=== PATIENT | male | born 1950 | race Caucasian/White ===

== ENCOUNTER 2024-05-02 10:38 | Inpatient (IN) | payer MEDICARE ==
[2024-05-02] MEDS: Albuterol/Ipratropium 3.0-0.5 MG/3 ML Neb Soln NEB ONE (11:18)
[2024-05-02 11:34] LABS: BASOPHILS ABSOLUTE AUTO 0.02 K/uL (0.02-0.10); BASOPHILS PERCENT AUTO 0.2 % (0.0-0.5); EOSINOPHILS ABSOLUTE AUTO 0.19 K/uL (0.04-0.40); EOSINOPHILS PERCENT AUTO 1.9 % (1.0-5.0); HEMATOCRIT 43.8 % (40.0-54.0); HEMOGLOBIN 14.4 g/dL (13.0-18.0); LYMPHOCYTES ABSOLUTE AUTO 0.69 K/uL (1.50-4.00); LYMPHOCYTES PERCENT AUTO 6.9 % (20.0-40.0); MEAN CORPUSCULAR HEMOGLOBIN 28.4 pg (27.0-32.0); MEAN CORPUSCULAR HGB CONC 32.9 g/dL (31.0-35.0); MEAN CORPUSCULAR VOLUME 86 fL (76-96); MEAN PLATELET VOLUME 10.7 fL (6.0-10.0); MONOCYTES ABSOLUTE AUTO 1.51 K/uL (0.20-0.80); NEUTROPHILS ABSOLUTE AUTO 7.63 K/uL (2.00-7.50); RED BLOOD CELL COUNT 5.07 M/uL (4.50-6.50); RED CELL DISTRIBUTION WIDTH 14.8 % (11.0-16.0)
[2024-05-02 11:39] LABS: PLATELET COUNT,PLT 126 K/uL (150-400)
[2024-05-02 11:45] LABS: INR 1.1 (1.0-3.5); PTT,PARTIAL THROMBOPLSTIN TIME 32.5 SECONDS (24.4-33.2)
[2024-05-02 11:47] LABS: INFLUENZA A NAA NEGATIVE (NEGATIVE); INFLUENZA B NAA NEGATIVE (NEGATIVE); RESPIRATORY SYNCYTIAL VIR NAA NEGATIVE (NEGATIVE)
[2024-05-02 11:47] LABS: A/G RATIO 0.9 (0.8-2.0); ALBUMIN 4.1 g/dL (3.4-5.0); ANION GAP 9.9 mmol/L (5.0-15.0); BILIRUBIN TOTAL 0.9 mg/dL (0.0-1.0); BUN/CREATININE RATIO 14.3 (6-25); CARBON DIOXIDE,CO2 33.4 mmol/L (21.0-32.0); CREATININE 1.54 mg/dL (0.70-1.30); EST CRCL DRUG DOSING (CG) 46.84 mL/min; POTASSIUM,K 4.3 mmol/L (3.5-5.1); PROTEIN TOTAL,TP 8.5 g/dL (6.4-8.2)
[2024-05-02 11:50] LABS: CORONAVIRUS COVID-19 NAA NEGATIVE (NEGATIVE)
[2024-05-02 11:50] LABS: PROTHROMBIN TIME 11.6 sec (9.0-11.5)
[2024-05-02 11:55] LABS: MAGNESIUM 2.1 mg/dL (1.8-2.4); TROPONIN I HIGH SENSITIVITY 30.9 pg/ml (<=60.4)
[2024-05-02] MEDS: Sodium Chloride 0.9% 50 ML SDV FLUSH ONE (12:23)
[2024-05-02] MEDS: Iodixanol 652 MG/ML 100 ML Bottle IV SCH (12:23)
[2024-05-02] MEDS: Furosemide 40 MG/4 ML VIAL IVPUSH ONE ×2 (12:33→19:33)
[2024-05-02] MEDS: Furosemide 40 MG/4 ML VIAL ONE (12:36)
[2024-05-02] MEDS: Enalaprilat 1.25 MG/ML SDV IVPUSH ONE (12:43)
[2024-05-02] MEDS ORDERED: Acetaminophen 325 MG Tab PO PRN (15:03)
[2024-05-02] MEDS: Ascorbic Acid 500 MG Tab PO SCH (19:35)
[2024-05-02] MEDS: Apixaban 5 MG Tab PO SCH (19:36)
[2024-05-02] MEDS: traZODone 50 MG Tab PO SCH (19:36)
[2024-05-02] MEDS: Carvedilol 25 MG Tab PO SCH (19:36)
[2024-05-02] MEDS: Magnesium Oxide 400 MG Tab PO SCH (19:36)
[2024-05-02] MEDS ORDERED: Non-Formulary Medication 1 Each (Ascorbic Acid [Vitamin C] 1,000 MG Tablet) PO SCH (20:00)
[2024-05-02] MEDS ORDERED: Non-Formulary Medication 1 Each (Magnesium [Magnesium] 200 MG Tablet) PO SCH (20:00)
[2024-05-02] MEDS: Doxycycline 100 MG Cap PO SCH (20:12)
[2024-05-03] MEDS: Albuterol/Ipratropium 3.0-0.5 MG/3 ML Neb Soln NEB PRN (04:55)
[2024-05-03] MEDS ORDERED: Non-Formulary Medication 1 Each (Levothyroxine [Levothyroxine] 125 MCG Tablet) PO SCH (07:00)
[2024-05-03 07:40] LABS: BASOPHILS ABSOLUTE AUTO 0.02 K/uL (0.02-0.10); BASOPHILS PERCENT AUTO 0.2 % (0.0-0.5); EOSINOPHILS ABSOLUTE AUTO 0.03 K/uL (0.04-0.40); EOSINOPHILS PERCENT AUTO 0.3 % (1.0-5.0); HEMATOCRIT 43.8 % (40.0-54.0); HEMOGLOBIN 14.2 g/dL (13.0-18.0); LYMPHOCYTES ABSOLUTE AUTO 1.14 K/uL (1.50-4.00); LYMPHOCYTES PERCENT AUTO 12.4 % (20.0-40.0); MEAN CORPUSCULAR HEMOGLOBIN 27.9 pg (27.0-32.0); MEAN CORPUSCULAR HGB CONC 32.4 g/dL (31.0-35.0); MEAN CORPUSCULAR VOLUME 86 fL (76-96); MEAN PLATELET VOLUME 10.8 fL (6.0-10.0); MONOCYTES ABSOLUTE AUTO 1.68 K/uL (0.20-0.80); MONOCYTES PERCENT AUTO 18.3 % (3.0-10.0); NEUTROPHILS ABSOLUTE AUTO 6.33 K/uL (2.00-7.50); NEUTROPHILS PERCENT AUTO 68.8 % (45.0-70.0); PLATELET COUNT,PLT 126 K/uL (150-400); RED BLOOD CELL COUNT 5.09 M/uL (4.50-6.50); RED CELL DISTRIBUTION WIDTH 14.8 % (11.0-16.0); WHITE BLOOD CELL COUNT,WBC 9.2 K/uL (4.0-11.0)
[2024-05-03] MEDS ORDERED: Carvedilol 25 MG Tab PO SCH (08:00)
[2024-05-03] MEDS ORDERED: Potassium Chloride 20 MEQ Tab.ER PO SCH (08:00)
[2024-05-03] MEDS ORDERED: Non-Formulary Medication 1 Each (Potassium Chloride [Potassium Chloride] 10 MEQ Cap.Er) PO SCH (08:00)
[2024-05-03] MEDS ORDERED: Losartan 25 MG Tab PO SCH (08:00)
[2024-05-03] MEDS ORDERED: Furosemide 20 MG Tab PO SCH (08:00)
[2024-05-03 08:06] LABS: A/G RATIO 0.9 (0.8-2.0); ALBUMIN 3.9 g/dL (3.4-5.0); ANION GAP 12.1 mmol/L (5.0-15.0); BILIRUBIN TOTAL 0.8 mg/dL (0.0-1.0); BUN/CREATININE RATIO 17.5 (6-25); CALCIUM 9.8 mg/dL (8.5-10.1); CARBON DIOXIDE,CO2 32.2 mmol/L (21.0-32.0); CREATININE 1.71 mg/dL (0.70-1.30); EST CRCL DRUG DOSING (CG) 42.18 mL/min; POTASSIUM,K 4.3 mmol/L (3.5-5.1); PROTEIN TOTAL,TP 8.2 g/dL (6.4-8.2)
[2024-05-03] MEDS: Levothyroxine 25 MCG Tab PO SCH (08:28)
[2024-05-03] MEDS: Levothyroxine 100 MCG Tab PO SCH (08:28)
[2024-05-03] MEDS: Omeprazole 20 MG Cap.CR PO SCH (08:28)
[2024-05-03] MEDS: Furosemide 40 MG/4 ML VIAL IVPUSH SCH (08:29)
[2024-05-03] MEDS: Zinc (Zinc Gluconate) 50 MG Tab PO SCH (08:31)
[2024-05-03] MEDS: Aspirin 81 MG Tab.EC PO SCH (08:32)
[2024-05-03] MEDS: Losartan 50 MG Tab PO SCH (08:32)
[2024-05-03] MEDS: Fish Oil/Omega-3 Fatty Acids 1 Gm Cap PO SCH (08:33)
[2024-05-03] MEDS: Calcium Carbonate 600 MG Tab PO SCH (08:33)
[2024-05-03] MEDS: Docusate Sodium 100 MG Cap PO SCH (08:33)
[2024-05-03] MEDS: Potassium Chloride 20 MEQ Tab.ER PO SCH (08:34)
[2024-05-03] MEDS: methylPREDNISolone Sodium Succinate 40 MG/1 ML SDV IVPUSH SCH (10:09)
[2024-05-03 15:58] LABS: APPEARANCE,URINE CLOUDY (CLEAR); BILIRUBIN,URINE NEGATIVE (NEGATIVE); COLOR,URINE YELLOW; GLUCOSE,URINE NEGATIVE (NEGATIVE); KETONES,URINE NEGATIVE (NEGATIVE); LEUKOCYTE ESTERASE,URINE NEGATIVE (NEGATIVE); NITRITE,URINE NEGATIVE (NEGATIVE); OCCULT BLOOD,URINE NEGATIVE (NEGATIVE); PROTEIN,URINE NEGATIVE (NEGATIVE); UROBILINOGEN,URINE 0.2 E.U./dL (0.2-1.0)
[2024-05-03] MEDS: Tamsulosin 0.4 MG Cap.ER PO SCH (18:19)
[2024-05-03] MEDS: Albuterol/Ipratropium 3.0-0.5 MG/3 ML Neb Soln NEB SCH (20:28)
[2024-05-03] MEDS: traZODone 50 MG Tab PO SCH (20:30)
[2024-05-04 07:58] LABS: BASOPHILS ABSOLUTE AUTO 0.01 K/uL (0.02-0.10); BASOPHILS PERCENT AUTO 0.1 % (0.0-0.5); EOSINOPHILS ABSOLUTE AUTO 0.02 K/uL (0.04-0.40); EOSINOPHILS PERCENT AUTO 0.2 % (1.0-5.0); HEMATOCRIT 44.2 % (40.0-54.0); HEMOGLOBIN 14.5 g/dL (13.0-18.0); LYMPHOCYTES ABSOLUTE AUTO 1.01 K/uL (1.50-4.00); LYMPHOCYTES PERCENT AUTO 11.5 % (20.0-40.0); MEAN CORPUSCULAR HGB CONC 32.8 g/dL (31.0-35.0); MEAN CORPUSCULAR VOLUME 86 fL (76-96); MEAN PLATELET VOLUME 10.8 fL (6.0-10.0); MONOCYTES ABSOLUTE AUTO 0.69 K/uL (0.20-0.80); MONOCYTES PERCENT AUTO 7.9 % (3.0-10.0); NEUTROPHILS ABSOLUTE AUTO 7.05 K/uL (2.00-7.50); NEUTROPHILS PERCENT AUTO 80.3 % (45.0-70.0); PLATELET COUNT,PLT 130 K/uL (150-400); RED BLOOD CELL COUNT 5.17 M/uL (4.50-6.50); RED CELL DISTRIBUTION WIDTH 14.5 % (11.0-16.0); WHITE BLOOD CELL COUNT,WBC 8.8 K/uL (4.0-11.0)
[2024-05-04 09:50] LABS: BUN/CREATININE RATIO 23.4 (6-25); CALCIUM 10.2 mg/dL (8.5-10.1); CARBON DIOXIDE,CO2 30.8 mmol/L (21.0-32.0); CREATININE 1.41 mg/dL (0.70-1.30); EST CRCL DRUG DOSING (CG) 51.16 mL/min; POTASSIUM,K 5.2 mmol/L (3.5-5.1)
[2024-05-04 10:14] LABS: ANION GAP 11.4 mmol/L (5.0-15.0)
[2024-05-05] MEDS: Albuterol/Ipratropium 3.0-0.5 MG/3 ML Neb Soln INH PRN (00:44)
[2024-05-05 08:47] LABS: ANION GAP 9.8 mmol/L (5.0-15.0); BUN/CREATININE RATIO 27.6 (6-25); CARBON DIOXIDE,CO2 32.1 mmol/L (21.0-32.0); CREATININE 1.34 mg/dL (0.70-1.30); EST CRCL DRUG DOSING (CG) 53.83 mL/min; POTASSIUM,K 4.9 mmol/L (3.5-5.1)
[2024-05-05 09:09] LABS: CALCIUM 10.2 mg/dL (8.5-10.1)
[2024-05-05] MEDS ORDERED: Furosemide 20 MG/2 ML VIAL IVPUSH SCH (18:45)
[2024-05-05] MEDS: Furosemide 20 MG/2 ML VIAL IVPUSH SCH (19:07)
[2024-05-05] MEDS: Budesonide 0.5 MG/2 ML Neb Susp NEB SCH (20:41)
[2024-05-06] MEDS: Cholecalciferol (Vitamin D3) 25 MCG Tab PO SCH (08:30)
[2024-05-06] MEDS ORDERED: Furosemide 20 MG/2 ML VIAL IVPUSH SCH (18:00)
[2024-05-07 09:36] LABS: HEMATOCRIT 41.7 % (40.0-54.0); HEMOGLOBIN 13.7 g/dL (13.0-18.0); MEAN CORPUSCULAR HEMOGLOBIN 27.8 pg (27.0-32.0); MEAN CORPUSCULAR HGB CONC 32.9 g/dL (31.0-35.0); MEAN PLATELET VOLUME 10.9 fL (6.0-10.0); RED BLOOD CELL COUNT 4.93 M/uL (4.50-6.50); RED CELL DISTRIBUTION WIDTH 14.4 % (11.0-16.0); WHITE BLOOD CELL COUNT,WBC 12.1 K/uL (4.0-11.0)
[2024-05-07 09:55] LABS: ANION GAP 13.5 mmol/L (5.0-15.0); BUN/CREATININE RATIO 26.9 (6-25); CALCIUM 9.8 mg/dL (8.5-10.1); CARBON DIOXIDE,CO2 27.8 mmol/L (21.0-32.0); CREATININE 1.34 mg/dL (0.70-1.30); EST CRCL DRUG DOSING (CG) 53.83 mL/min; PHOSPHORUS 2.5 mg/dL (2.5-4.9); POTASSIUM,K 4.3 mmol/L (3.5-5.1)
[2024-05-07] MEDS: Furosemide 80 MG Tab PO SCH (10:07)
[2024-05-07] MEDS: Cholecalciferol (Vitamin D3) 25 MCG Tab PO SCH (12:28)
[2024-05-07] MEDS: Zinc (Zinc Gluconate) 50 MG Tab PO SCH (12:28)
[2024-05-07] MEDS: Fish Oil/Omega-3 Fatty Acids 1 Gm Cap PO SCH (12:28)
[2024-05-07] MEDS: Ascorbic Acid 500 MG Tab PO SCH (19:39)
[2024-05-08] MEDS: predniSONE 10 MG Tab PO SCH (08:46)
[2024-05-08] MEDS: Calcium Carbonate 500 MG Tab.Chew PO ONE (10:46)
[2024-05-08 10:47] VITALS: BP 121/58; PULSE 60
[2024-05-08] MEDS ORDERED: predniSONE 10 MG Tab PO ONE (17:00)
== END 2024-05-08 11:34 | disposition home or self-care (01) | DRG 291 ==
LOC: LB.ED 10:38 → LB.MS 15:06 → UNDOADMIN 15:30
PROVIDERS: ADMIT Physician Assistant; ATTEND Physician Assistant
PROC: 0T9B70Z Drainage of Bladder with Drainage Device, Via Natural or Artificial Opening (ICD-10-PCS; principal; 2024-05-04)
DX: I13.0 Hypertensive heart and chronic kidney disease with heart failure and stage 1 through stage 4 chronic kidney disease, or unspecified chronic kidney disease (principal); J18.9 Pneumonia, unspecified organism; J44.9 Chronic obstructive pulmonary disease, unspecified; J44.0 Chronic obstructive pulmonary disease with (acute) lower respiratory infection; J98.11 Atelectasis; J45.41 Moderate persistent asthma with (acute) exacerbation; N17.9 Acute kidney failure, unspecified; J44.1 Chronic obstructive pulmonary disease with (acute) exacerbation; I25.10 Atherosclerotic heart disease of native coronary artery without angina pectoris; H91.90 Unspecified hearing loss, unspecified ear; H54.7 Unspecified visual loss; I48.91 Unspecified atrial fibrillation; K21.9 Gastro-esophageal reflux disease without esophagitis; F41.9 Anxiety disorder, unspecified; E03.9 Hypothyroidism, unspecified; I50.9 Heart failure, unspecified; R59.0 Localized enlarged lymph nodes; J20.9 Acute bronchitis, unspecified; N18.30 Chronic kidney disease, stage 3 unspecified; R33.9 Retention of urine, unspecified; N40.1 Benign prostatic hyperplasia with lower urinary tract symptoms; E78.00 Pure hypercholesterolemia, unspecified; G47.00 Insomnia, unspecified; Z88.1 Allergy status to other antibiotic agents; Z79.82 Long term (current) use of aspirin; Z79.01 Long term (current) use of anticoagulants; Z79.899 Other long term (current) drug therapy; Z95.2 Presence of prosthetic heart valve; Z87.81 Personal history of (healed) traumatic fracture; Z98.890 Other specified postprocedural states; Z87.891 Personal history of nicotine dependence; Z95.810 Presence of automatic (implantable) cardiac defibrillator; Z95.5 Presence of coronary angioplasty implant and graft; Z86.718 Personal history of other venous thrombosis and embolism
CPT/HCPCS: 0241U; 36415; 51701; 51798; 71045; 71260; 80048; 80053; 81003; 83735; 83880; 84100; 84484; 85025; 85027; 85379; 85610; 85730; 86140; 93005; 93010; 94640; 96374; 99223; 99232; 99239; 99285-25; A9270-GY; C1758; J1940; J2919; J3490; J7512; J7620

== ENCOUNTER 2025-08-05 11:15 | Emergency (ER) | payer MEDICARE ==
[2025-08-05] MEDS ORDERED: Sodium Chloride 0.9% 10 ML Syringe FLUSH PRN (12:40)
[2025-08-05 13:11] LABS: BASOPHILS ABSOLUTE AUTO 0.01 K/uL (0.02-0.10); BASOPHILS PERCENT AUTO 0.1 % (0.0-0.5); EOSINOPHILS ABSOLUTE AUTO 0.07 K/uL (0.04-0.40); EOSINOPHILS PERCENT AUTO 0.7 % (1.0-5.0); LYMPHOCYTES ABSOLUTE AUTO 1.07 K/uL (1.50-4.00); LYMPHOCYTES PERCENT AUTO 11.4 % (20.0-40.0); MEAN PLATELET VOLUME 10.5 fL (6.0-10.0); MONOCYTES ABSOLUTE AUTO 1.56 K/uL (0.20-0.80); MONOCYTES PERCENT AUTO 16.6 % (3.0-10.0); NEUTROPHILS ABSOLUTE AUTO 6.69 K/uL (2.00-7.50); NEUTROPHILS PERCENT AUTO 71.2 % (45.0-70.0); PLATELET COUNT,PLT 166 K/uL (150-400); RED BLOOD CELL COUNT 4.78 M/uL (4.50-6.50); RED CELL DISTRIBUTION WIDTH 13.5 % (11.0-16.0); WHITE BLOOD CELL COUNT,WBC 9.4 K/uL (4.0-11.0)
[2025-08-05 13:42] LABS: A/G RATIO 0.9 (0.8-2.0); ALANINE AMINOTRANSFERASE,ALT 25.0 U/L (12-78); ASPARTATE AMNIOTRANSFERASE,AST 19.0 U/L (15-37); BILIRUBIN TOTAL 1.0 mg/dL (0.0-1.0); BLOOD UREA NITROGEN,BUN 23.0 mg/dL (8-26); CARBON DIOXIDE,CO2 30.3 mmol/L (21.0-32.0); CHLORIDE,CL 99.0 mmol/L (98-107); CREATININE 1.65 mg/dL (0.70-1.30); EST CRCL DRUG DOSING (CG) 43.04 mL/min; ESTIMATED GFR 43.0 mL/min (>60); GLUCOSE RANDOM 105.0 mg/dL (74-100); POTASSIUM,K 4.0 mmol/L (3.5-5.1); PROTEIN TOTAL,TP 8.1 g/dL (6.4-8.2); SODIUM,NA 136.0 mmol/L (136-145)
[2025-08-05 13:48] LABS: INR 1.1 (1.0-3.5)
[2025-08-05 15:59] VITALS: BP 119/52; PULSE 60
== END 2025-08-05 14:40 | disposition home or self-care (01) ==
LOC: LB.ED 11:15
DX: L95.9 Vasculitis limited to the skin, unspecified (principal); L97.928 Non-pressure chronic ulcer of unspecified part of left lower leg with other specified severity; L97.918 Non-pressure chronic ulcer of unspecified part of right lower leg with other specified severity; R23.3 Spontaneous ecchymoses; I48.91 Unspecified atrial fibrillation; K21.9 Gastro-esophageal reflux disease without esophagitis; N18.9 Chronic kidney disease, unspecified; Z87.891 Personal history of nicotine dependence; Z88.1 Allergy status to other antibiotic agents; Z79.82 Long term (current) use of aspirin; Z79.899 Other long term (current) drug therapy; Z79.01 Long term (current) use of anticoagulants
CPT/HCPCS: 36415; 80053; 83880; 85025; 85610; 86140; 96374; 99283; 99283-25; J2270